=== PATIENT | female | born 1985 | race Caucasian/White ===

== ENCOUNTER 2016-07-22 13:22 | Emergency (ER) | payer OTHER ==
[~2016-07-22] VITALS: Ht 170.2 cm; Wt 90.7 kg
[~2016-07-22 13:22] MED LIST: ALBU8.5H6 IH; AZIT250T PO; BENZ100C PO; PRED50TA PO; PROAIR RESPICL90 MCG IH; PROM5SYR2 PO
[2016-07-22 13:42] VITALS: BP 131/62
--- NOTE | 2016-07-22 14:43 | RAD ---
Chest, 2 views, 07/22/2016: History: Cough, shortness of breath The heart size and pulmonary vascularity are normal. No pulmonary infiltrates are seen. There is no evidence of pleural fluid. IMPRESSION: No acute cardiopulmonary abnormality is detected.
[2016-07-22 15:05] LABS: NEGATIVE OBC STREP NEG; POSITIVE OBC STREP POS
--- NOTE | 2016-07-22 15:07 | PHYS DOC ---
Past Medical History Past Medical History: Asthma, Bronchitis Past Surgical History: , Other Additional Past Surgical Histo: fibroma cyst removal, LT KNEE Additional Information: nonsmoker Alcohol Use: Occasionally Drug Use: None Adult General Chief Complaint Chief Complaint: HEADACHE HPI HPI Patient is a 31 year old female who presents with productive cough and shortness of breath for 1 week. She reports headache in both temples as well as nasal congestion and sore throat. She denies fever, ear pain, or GI complaints. Patient was recently diagnosed with bronchitis and prescribed prednisone and a Z -Matheus. She reports interval improvement after completion of the medications with return in her symptoms approximately one week ago. There is a household member who was recently diagnosed with "tonsillitis." The patient did not receive a flu shot this year. She does not have a PCP. Review of Systems Review of Systems Constitutional: Denies fever or chills. [] Eyes: Denies change in visual acuity, redness, or eye pain. [] HENT: Denies ear pain. Reports nasal congestion and sore throat. Respiratory: Reports productive cough and shortness of breath. Cardiovascular: Denies chest pain, palpitations or edema. [] GI: Denies abdominal pain, nausea, vomiting, bloody stools or diarrhea. [] : Denies dysuria, hematuria or urinary frequency. [] Musculoskeletal: Denies back pain or joint pain. [] Integument: Denies rash or skin lesions. [] Neurologic: Denies focal weakness or sensory changes. Reports bitemporal headache. Endocrine: Denies polyuria or polydipsia. [] Psych: Denies anxiety or depression. [] All systems reviewed and negative unless otherwise stated in the HPI. Allergies Allergies Allergies Coded Allergies Type Severity Reaction Last Updated Verified No Known Drug Allergies 09/19/13 No Physical Exam Physical Exam Constitutional: Well developed, well nourished, no acute distress, non-toxic appearance. [] HENT: Normocephalic, atraumatic, bilateral external ears normal, oropharynx moist, no oral exudates, nose normal. Bilateral TMs are without erythema or bulging. There is mild posterior pharyngeal erythema without significant tonsillar edema. Eyes: PERRLA, EOMI, conjunctiva normal, no discharge. [] Neck: Normal range of motion, no tenderness, supple, no stridor. [] Cardiovascular: Heart rate regular rhythm, no murmur [] Lungs & Thorax: Mild wheezes are heard throughout the lung lozano without rales or rhonchi. No respiratory distress. Skin: Warm, dry, no erythema, no rash. [] Neurologic: Alert and oriented X 3, normal motor function, normal sensory function, no focal deficits noted. [] Psychologic: Affect normal, judgement normal, mood normal. [] Current Patient Data Vital Signs Vital Signs Date Time Temp Pulse Resp B/P Pulse Ox O2 Delivery O2 Flow Rate FiO2 07/22/16 13:42 98.4 88 20 97 Room Air 98.4 Lab Values Laboratory Tests Test 07/22/16 14:35 Group A Streptococcus Rapid Negative (NEGATIVE) EKG EKG [] Radiology/Procedures Radiology/Procedures REASON: cough, soa PROCEDURE: CHEST PA & LATERAL Chest, 2 views, 07/22/2016: History: Cough, shortness of breath The heart size and pulmonary vascularity are normal. No pulmonary infiltrates are seen. There is no evidence of pleural fluid. IMPRESSION: No acute cardiopulmonary abnormality is detected. Course & Med Decision Making Course & Med Decision Making Pertinent Labs and Imaging studies reviewed. (See chart for details) [] Dragon Disclaimer Dragon Disclaimer This electronic medical record was generated, in whole or in part, using a voice recognition dictation system. Departure Departure Impression: Primary Impression: Acute bronchitis Disposition: 01 HOME, SELF-CARE Condition: STABLE Referrals: NO PCP (PCP) Patient Instructions: Acute Bronchitis, [id number] Additional Instructions: Your chest x-ray does not show any pneumonia. Your strep test was negative. You appear to have bronchitis, which is usually viral. Please complete all of the prescribed steroids, even if you are feeling better. Please use the prescribed inhaler as needed for cough or shortness of breath. Do not use more often than directed. Please drink plenty of fluids to stay hydrated and get lots of rest. Please follow-up with a primary care provider if your symptoms continue. Return to the emergency department if you have increased difficulty breathing, high fever that does not respond to Tylenol or Motrin, or other new or concerning symptoms. Scripts Benzonatate 200 Mg Capsule1 Cap PO TID #30 CAP Prov:DOMINIK WANG 07/22/16 Prednisone 20 Mg Kfrpmh16 Mg PO DAILY 5 Days Prov:DOMINIK WANG 07/22/16 Albuterol Sulfate (Proair Hfa Inhaler)8.5 Gm [id number] Puff INH Q4HRS PRN SHORTNESS OF BREATH #1 INHALER Prov:DOMINIK WANG 07/22/16 Problem Qualifiers Primary Impression: Acute bronchitis Bronchitis organism: unspecified organism Qualified Code: J20.9 - Acute bronchitis, unspecified DOMINIK WANG Jul 22, 2016 15:07
[2016-07-22] MEDS ORDERED: BENZ200C39 PO (15:59)
[2016-07-22] MEDS ORDERED: PROAIR HFA8.5 GM INH (15:59)
[2016-07-22] MEDS ORDERED: PRED20TA PO (15:59)
== END 2016-07-22 16:12 | disposition home or self-care (01) ==
LOC: ER 13:22
DX: J20.9 Acute bronchitis, unspecified (principal); J45.909 Unspecified asthma, uncomplicated; R51 Headache
CPT/HCPCS: 71020; 87070; 87880; 99285-25

== ENCOUNTER 2017-09-20 16:54 | Emergency (ER) | payer OTHER | END 2017-09-20 18:08 | disposition home or self-care (01) | LOC: ER 16:54 | DX: M72.2 Plantar fascial fibromatosis (principal); L03.114 Cellulitis of left upper limb; J45.909 Unspecified asthma, uncomplicated | CPT/HCPCS: 73630; 99284 ==

== ENCOUNTER 2021-03-29 21:18 | Emergency (ER) | payer MEDICAID, OTHER ==
[~2021-03-29] VITALS: Ht 170.2 cm; Wt 90.0 kg
[~2021-03-29 21:18] MED LIST changes: +ALBU2.5V8 INH; +BENZ200C47 PO; +CEPH500T PO; +PRED20TA PO
[2021-03-29] MEDS ORDERED: ACETAMINOPHEN 500 MG TABLET PO ONE (22:15)
[2021-03-29 22:18] LABS: BILIRUBIN,URINE NEGATIVE (NEG); CLARITY,URINE CLEAR; COLOR,URINE YELLOW; NITRITE,URINE NEGATIVE (NEG); PROTEIN,URINE NEGATIVE (NEG-TRACE); UROBILINOGEN,URINE 0.2 mg/dL (0.2 mg/dL)
[2021-03-29 22:25] LABS: BACTERIA,URINE 0 /HPF (0-FEW); RBC,URINE 20-40 /HPF (0-2); WBC,URINE RARE /HPF (0-4)
--- NOTE | 2021-03-29 22:36 | PHYS DOC ---
Past Medical History Past Medical History: Asthma, Bronchitis Past Surgical History: , Other Additional Past Surgical Histo: fibroma cyst removal, LT KNEE Smoking Status: Current Every Day Smoker Alcohol Use: Occasionally Drug Use: None General Adult EDM: Chief Complaint: FEVER HPI: HPI: Patient is a 35 year old female who presents to the ED today complaining of a fever that began this evening. Patient denies any coughing or congestion. Reports 7 out of 10 sharp intermittent epigastric abdominal pain that began 2 days ago. Patient states this pain is consistent with the last time she had a UTI. She states she is currently on her menstrual cycle. Denies any nausea, vomiting, diarrhea. She states she is not vaccinated against COVID-19 because she does not believe in Covid vaccine. She states she has a child who has cerebral palsy and hence the reason she wants to be checked for COVID-19. She states she does not like coming to the hospital and does not want a big work-up Review of Systems: Review of Systems: Constitutional: Reports fever Eyes: Denies change in visual acuity. [] HENT: Denies nasal congestion or sore throat. [] Respiratory: Denies cough or shortness of breath. [] Cardiovascular: Denies chest pain or edema. [] GI: Reports abdominal pain, denies nausea, vomiting, bloody stools or diarrhea. [] : Denies dysuria. [] Musculoskeletal: Denies back pain or joint pain. [] Integument: Denies rash. [] Neurologic: Denies headache, focal weakness or sensory changes. [] Psychiatric: Denies depression or anxiety. [] Heart Score: C/O Chest Pain: N/A Risk Factors: Risk Factors: DM, Current or recent (<one month) smoker, HTN, HLP, family history of CAD, obesity. Risk Scores: Score 0 - 3: 2.5% MACE over next 6 weeks - Discharge Home Score 4 - 6: 20.3% MACE over next 6 weeks - Admit for Clinical Observation Score 7 - 10: 72.7% MACE over next 6 weeks - Early Invasive Strategies Current Medications: Current Medications Medications (Trade) Dose Ordered Sig/Terri Start Time Stop Time Status Last Admin Dose Admin Acetaminophen (Tylenol) 1,000 mg 1X ONCE 03/29/21 22:15 03/29/21 22:16 DC 03/29/21 22:09 1,000 MG Allergies: Allergies: Allergies Coded Allergies Type Severity Reaction Last Updated Verified No Known Drug Allergies 09/19/13 No Physical Exam: PE: Constitutional: Well developed, well nourished, no acute distress, non-toxic appearance. [] HENT: Normocephalic, atraumatic, bilateral external ears normal, oropharynx moist, no oral exudates, nose normal. [] Eyes: PERRLA, EOMI, conjunctiva normal, no discharge. [] Neck: Normal range of motion, no tenderness, supple, no stridor. [] Cardiovascular:Heart rate regular rhythm, no murmur [] Lungs & Thorax: Bilateral breath sounds clear to auscultation [] Abdomen: Bowel sounds normal, soft, no tenderness, no masses, no pulsatile masses. [] Skin: Warm, dry, no erythema, no rash. [] Back: No tenderness, no CVA tenderness. [] Extremities: No tenderness, no cyanosis, no clubbing, ROM intact, no edema. [] Neurologic: Alert and oriented X 3, normal motor function, normal sensory function, no focal deficits noted. [] Psychologic: Affect normal, judgement normal, mood normal. [] Current Patient Data: Labs: Laboratory Tests Test 03/29/21 21:35 03/29/21 21:39 Urine Collection Type Void Urine Color Yellow Urine Clarity Clear Urine pH 6.0 (<5.0-8.0) Urine Specific Lee 1.020 (1.000-1.030) Urine Protein Negative mg/dL (NEG-TRACE) Urine Glucose (UA) Negative mg/dL (NEG) Urine Ketones (Stick) Negative mg/dL (NEG) Urine Blood Large (NEG) Urine Nitrite Negative (NEG) Urine Bilirubin Negative (NEG) Urine Urobilinogen Dipstick 0.2 mg/dL (0.2 mg/dL) Urine Leukocyte Esterase Negative (NEG) Urine RBC 20-40 /HPF (0-2) Urine WBC Rare /HPF (0-4) Urine Squamous Epithelial Cells Few /LPF Urine Bacteria 0 /HPF (0-FEW) Urine Mucus Slight /LPF POC Urine HCG, Qualitative Hcg negative (Negative) Vital Signs: Vital Signs Date Time Temp Pulse Resp B/P (MAP) Pulse Ox O2 Delivery O2 Flow Rate FiO2 03/29/21 21:58 100.7 90 16 135/70 (91) 99 Room Air 100.7 EKG: EKG: [] Radiology/Procedures: Radiology/Procedures: [] Course & Med Decision Making: Course & Med Decision Making Pertinent Labs and Imaging studies reviewed. (See chart for details) This is a 35-year-old female patient presenting to the ED today complaining of a fever that began today as well as epigastric abdominal pain for 2 days. She is refusing work-up apart from Covid test and UTI test. Temperature 100.7 on arrival to the ED with a heart rate in the 90s. O2 sats 99% on room air. UA negative for infection, negative rapid Covid test. PCR Covid test pending. Discharge to home. Supportive care measures recommended. Dragon Disclaimer: Rober Disclaimer: This electronic medical record was generated, in whole or in part, using a voice recognition dictation system. Departure Departure Impression: Primary Impression: Fever Qualified Codes: R50.9 - Fever, unspecified Additional Impression: Person under investigation for COVID-19 Disposition: HOME / SELF CARE / HOMELESS Condition: STABLE Referrals: NO PCP (PCP) Follow-up with your doctor in 1 to 2 weeks Patient Instructions: Fever, Adult Additional Instructions: You were evaluated in the emergency room for a fever. Your urine is negative for infection. Your rapid Covid test is negative. Your PCR Covid test is pending. Please quarantine yourself until results come back we will call with results. In the meantime we encourage you to rest, maintain good hand hygiene, take Tylenol or Motrin for pain or fever. Push fluids. Follow-up with your doctor in the course of this week or next week FARIDA WIGGINS APRN Mar 29, 2021 22:35
[2021-03-29 22:40] VITALS: BP 115/55
--- NOTE | 2021-03-30 15:19 | NUR ---
IP: Patient notified of negative COVID19 test result. Verbalized understanding.
== END 2021-03-29 23:20 | disposition home or self-care (01) ==
LOC: ER 21:18
DX: R50.9 Fever, unspecified (principal); Z20.822 Contact with and (suspected) exposure to COVID-19; J45.909 Unspecified asthma, uncomplicated; F17.200 Nicotine dependence, unspecified, uncomplicated
CPT/HCPCS: 81001; 81025; 87426; 99283; U0003; U0005